=== PATIENT | female | born 1965 | race Caucasian/White ===

== ENCOUNTER → 2016-05-17 | Outpatient (CLI) | payer OTHER ==
--- NOTE | 2016-05-17 18:10 | DX ---
PA and Lateral Chest on May 17, 2016 History: Chest pain in a 50-year-old female; no previous studies are available for comparison. Findings: The heart and mediastinum are normal. Pulmonary vascularity is normal. No focal pulmonary c onsolidation is seen. There is minimal linear opacity at the left lung base which is presumably atele ctasis. There is no pleural fluid. A pneumothorax is not identified. Impression: Minimal left basilar atelectasis is suspected.
== END ==
LOC: CIMAGING 14:57
PROVIDERS: ATTEND Internal Medicine Cardiovascular Disease
DX: R93.8 Abnormal findings on diagnostic imaging of other specified body structures (principal); R07.9 Chest pain, unspecified
CPT/HCPCS: 71020-PO

== ENCOUNTER 2016-06-21 07:19 | Day surgery (SDC) | payer OTHER ==
[2016-06-21] MEDS ORDERED: diphenhydrAMINE 25 MG CAP PO ONE ×2 (07:24→07:58)
[2016-06-21] MEDS ORDERED: DIAZEPAM 5 MG TAB PO ONE (07:24)
[2016-06-21] MEDS ORDERED: FAMOTIDINE 20 MG TAB PO ONE (07:24)
[2016-06-21] MEDS ORDERED: NS 1,000 ML IV ONE (07:24)
[2016-06-21] MEDS ORDERED: ASPIRIN EC 325 MG TAB PO ONE ×2 (07:24→07:58)
--- NOTE | 2016-06-21 07:44 | CPEKG ---
Heart Rate: 67 RR Interval: 896 P-R Interval: 132 QRSD Interval: 84 QT Interval: 400 QTC Interval: 423 P [place]: 37 QRS [place]: -10 T Wave [place]: 57 EKG Severity - ABNORMAL ECG - EKG Impression: SINUS RHYTHM EKG Impression: MULTIPLE ATRIAL PREMATURE COMPLEXES Electronically Signed By: Chris Easton 21-Jun-2016 08:48:24
[2016-06-21] MEDS ORDERED: DIAZEPAM 5 MG TAB ONE (07:59)
[2016-06-21 08:04] LABS: % IMMATURE GRANULYOCYTES 0.3 % (0.0-1.1); ABSOLUTE IMMATURE GRANULOCYTES 0.02 10^3/uL (0.00-0.10); ADD DIFF? NO; ADD MORPH? NO; ADD SCAN? NO; ATYPICAL LYMPHOCYTE FLAG 10 (0-99); FRAGMENT RBC FLAG 0 (0-99); HEMATOCRIT 44.9 % (38.0-47.0); HEMOGLOBIN 15.7 g/dL (12.6-16.3); LEFT SHIFT FLG 0 (0-99); LIPEMIA HEMOLYSIS FLAG 90 (0-99); MEAN CELL HEMOGLOBIN 30.7 pg (27.9-34.1); MEAN CELL VOLUME 87.7 fL (81.5-99.8); MEAN PLATELET VOLUME 10.6 fL (8.7-11.7); PLATELET CLUMPS FLAG 0 (0-99); PLATELET COUNT 296 10^3/uL (150-400); RED BLOOD CELL COUNT 5.12 10^6/uL (4.18-5.33); RED CELL DISTRIBUTION WIDTH 14.1 % (11.5-15.2)
[2016-06-21 08:17] LABS: INR 0.93 (0.83-1.16); PROTIME(PATIENT) 12.4 SEC (12.0-15.0)
[2016-06-21 08:29] LABS: ANION GAP 9 mEq/L (8-16); CALCIUM 9.2 mg/dL (8.5-10.4); CARBON DIOXIDE 26 mEq/l (22-31); CHLORIDE 106 mEq/L (97-110); CHOLESTEROL 193 mg/dL (140-220); CHOLESTEROL/HDL RATIO 4.71 RATIO (1.00-4.44); CREATININE 0.8 mg/dL (0.6-1.0); GLOMERULAR FILTRATION RATE > 60; GLUCOSE 84 mg/dL (70-100); HIGH DENSITY LIPOPROTEIN 41 mg/dL (40-85); LDL/HDL RATIO 3.24 RATIO (1.00-3.22); LOW DENSITY LIPOPROTEIN 133 mg/dL (80-100); MAGNESIUM 1.9 mg/dL (1.6-2.3); NON-HIGH DENSITY LIPOPROTEIN 152 mg/dL (90-129); POTASSIUM 4.4 mEq/L (3.5-5.2); SODIUM 141 mEq/L (134-144); TRIGLYCERIDE 98 mg/dL (35-135); VERY LOW DENSITY LIPOPROTEINS 19 mg/dL (8-25)
[2016-06-21] MEDS ORDERED: fentaNYL 100 MCG/2 ML INJ ONE (08:48)
[2016-06-21] MEDS ORDERED: MIDAZOLAM 2 MG/2 ML VIAL ONE (08:48)
[2016-06-21] MEDS ORDERED: LIDOCAINE 1% 30 ML SDV ONE (08:48)
[2016-06-21] MEDS ORDERED: IOPAMIDOL (ISOVUE 370) 100 ML BTL IV ONE (08:49)
[2016-06-21] MEDS ORDERED: HYDROCODONE/APAP 5/325 TAB PO PRN (11:20)
[2016-06-21] MEDS ORDERED: NITROGLYCERIN 0.4 MG BTL SL PRN (11:20)
[2016-06-21] MEDS ORDERED: ATROPINE SULFATE 1 MG/10 ML SYR IVP PRN (11:20)
[2016-06-21] MEDS ORDERED: ONDANSETRON 4 MG/2 ML VIAL IVP PRN (11:20)
[2016-06-21] MEDS ORDERED: OXYCODONE/APAP 5/325 TAB PO PRN (11:20)
--- NOTE | 2016-06-21 11:33 | CPIP ---
[f rep st] INVASIVE CARDIAC PROCEDURE DATE OF PROCEDURE: 06/21/2016 PROCEDURE: 1. Coronary angiography. 2. Left ventriculography. INDICATION: 1. Exertional chest pain concerning for angina. 2. Stress test with no evidence of ischemia by EKG or nuclear imaging; however, patient did have ex ertional chest pain concerning for angina. ACCESS: Patient was prepped and draped in the sterile fashion. Lidocaine 1% was used to anesthetiz e the right inguinal region. A 6-German introducer sheath was placed selectively into the right com mon femoral artery via modified Seldinger technique. CORONARY ANGIOGRAPHY: A 6-German JL4 was advanced to the left main coronary artery and images obtai belkis. The left main coronary artery bifurcated into an LAD and circumflex coronary arteries. The le ft main coronary artery appeared normal. The left anterior descending coronary artery gave rise to 2 diagonal branches. The left anterior descending coronary artery and its complement of diagonal br anches appeared normal. The circumflex coronary artery is dominant. The circumflex coronary artery in its complement of OM posterior lateral and posterior descending coronary arteries appeared lien l. A 6-German no torque right catheter was advanced to the right coronary artery and it was obtaine d. The right coronary artery is nondominant. Right coronary artery appeared normal. LEFT VENTRICULOGRAPHY: A 6-German pigtail catheter was advanced into the left ventricle and images obtained. Left ventricle is normal in size and had normal systolic function. Estimated ejection fr action is 55%. COMPLICATIONS: None. CONCLUSIONS: 1. Normal coronary arteries. 2. Normal left ventricular size and systolic function. PLAN: Search for other noncardiac causes of chest pain. /[id number]/MODL
== END 2016-06-21 14:52 | disposition home or self-care (01) ==
LOC: FCATH 07:19
PROVIDERS: ATTEND Internal Medicine Cardiovascular Disease
PROC: 4A023N7 Measurement of Cardiac Sampling and Pressure, Left Heart, Percutaneous Approach (ICD-10-PCS; principal; 2016-06-21)
PROC: B2111ZZ Fluoroscopy of Multiple Coronary Arteries using Low Osmolar Contrast (ICD-10-PCS; principal; 2016-06-21)
PROC: B2151ZZ Fluoroscopy of Left Heart using Low Osmolar Contrast (ICD-10-PCS; principal; 2016-06-21)
DX: R07.89 Other chest pain (principal); E78.5 Hyperlipidemia, unspecified
CPT/HCPCS: C1760; J1644; J2250; J3010; Q9967